=== PATIENT | female | born 1935 | race Caucasian/White ===

== ENCOUNTER 2020-04-30 12:26 | Observation (INO) | payer MEDICARE, OTHER ==
[~2020-04-30] VITALS: Ht 165.1 cm; Wt 70.3 kg
[~2020-04-30 12:26] MED LIST: ARICEPT10 MG PO; BUSPIRONE HCL15 MG PO; CARAFATE 1 GM TA1 GM PO; CYANOCOBAL1000 MCG/1 INJ; CYMBALTA 30 MG30 MG PO; DETROL LA4 MG PO; DEXILANT60 MG PO; ELIQUIS2.5 MG PO; FENOFIBRATE160 MG PO; FEOSOL325 MG PO; FLONASE 0.05% N16 GM; HYDRALAZINE HC100 MG PO; HYDROCHLOROTHIA25 MG PO; IMDUR ER TAB 6060 MG PO; LASIX20 MG PO; LIPITOR40 MG PO; LOPRESSOR 25 MG25 MG PO; NEURONTIN 300300 MG PO; NORCO 7.5-3251 EACH PO; PEPCID40 MG PO; PERCOCET 5-3251 EACH PO; POTASSIUM CHLO20 ME1 PO; PRINIVIL10 MG PO; SEROQUEL50 MG PO; SYNTHROID137 MCG PO; TOUJEO MAX300 UNIT/1 SQ; TRADJENTA5 MG PO; VISTARIL25 MG PO; VITAMIN D31000 UNI1 PO; VITAMIN E400 UNI2 PO; ZESTRIL10 MG PO; ZOFRAN ODT 4 MG4 MG PO; ZOFRAN4 MG PO; ZOLOFT25 MG PO
[2020-04-30 15:53] LABS: HEMOGLOBIN 8.7 gm/dl (12.3-15.3); RED BLOOD COUNT 2.77 M/UL (4.00-5.10); WHITE BLOOD COUNT 9.2 K/UL (4.5-11.0)
[2020-04-30] MEDS ORDERED: NORVASC10 MG PO (16:01)
[2020-04-30] MEDS ORDERED: DAILY VITE1 EACH PO (16:13)
[2020-04-30] MEDS ORDERED: FERREX 150150 MG PO (16:13)
[2020-04-30] MEDS ORDERED: PROTONIX 40 MG40 M1 PO (16:15)
[2020-04-30 16:54] LABS: BUN/CREATININE RATIO 26 (0-10)
[2020-05-01 05:07] LABS: HEMOGLOBIN 8.5 gm/dl (12.3-15.3); RED BLOOD COUNT 2.79 M/UL (4.00-5.10); WHITE BLOOD COUNT 8.2 K/UL (4.5-11.0)
[2020-05-02 04:51] LABS: HEMOGLOBIN 7.1 gm/dl (12.3-15.3); WHITE BLOOD COUNT 7.7 K/UL (4.5-11.0)
[2020-05-02 04:54] LABS: RED BLOOD COUNT 2.35 M/UL (4.00-5.10)
[2020-05-03 05:53] LABS: HEMOGLOBIN 8.8 gm/dl (12.3-15.3); RED BLOOD COUNT 2.76 M/UL (4.00-5.10); WHITE BLOOD COUNT 7.1 K/UL (4.5-11.0)
== END 2020-05-03 11:27 | disposition home or self-care (01) ==
LOC: ER1 12:26 → M/S 14:22 → CDU 14:22 → M/S 20:10
PROVIDERS: Orthopaedic Surgery; Physician Assistant; ADMIT Family Medicine
DX: T84.021A Dislocation of internal left hip prosthesis, initial encounter (principal); I13.0 Hypertensive heart and chronic kidney disease with heart failure and stage 1 through stage 4 chronic kidney disease, or unspecified chronic kidney disease; N18.9 Chronic kidney disease, unspecified; I50.9 Heart failure, unspecified; D63.1 Anemia in chronic kidney disease; D50.9 Iron deficiency anemia, unspecified; E87.6 Hypokalemia; I48.0 Paroxysmal atrial fibrillation; E11.9 Type 2 diabetes mellitus without complications; K21.9 Gastro-esophageal reflux disease without esophagitis; F32.9 Major depressive disorder, single episode, unspecified; F03.90 Unspecified dementia, unspecified severity, without behavioral disturbance, psychotic disturbance, mood disturbance, and anxiety; E03.9 Hypothyroidism, unspecified; Z98.890 Other specified postprocedural states; Z20.822 Contact with and (suspected) exposure to COVID-19; Z82.49 Family history of ischemic heart disease and other diseases of the circulatory system; Z88.5 Allergy status to narcotic agent; Z79.84 Long term (current) use of oral hypoglycemic drugs; Z79.01 Long term (current) use of anticoagulants; Z79.899 Other long term (current) drug therapy
CPT/HCPCS: 36415; 36430; 71045; 73502; 76000; 80048; 80053; 81001; 82550; 82553; 82962; 83874; 84132; 84484; 85025; 85027; 85610; 85730; 86850; 86900; 86901; 86920; 93005; 96372; 96374; 96375; 96376; 97110-GP-CQ; 97116-GP-CQ; 97161; 99284; G0378; J2001; J2405; J2704; J3420; J3480; J7030; J7120; P9016; Q0177; U0002

== ENCOUNTER 2021-07-08 21:08 | Inpatient (IN) | payer MEDICARE, OTHER ==
[~2021-07-08] VITALS: Ht 162.6 cm; Wt 51.9 kg
[~2021-07-08 21:08] MED LIST changes: +DAILY VITE1 EACH PO; +FERREX 150150 MG PO; +NORVASC10 MG PO; +PROTONIX 40 MG40 M1 PO
[2021-07-09 00:04] LABS: HEMOGLOBIN 9.3 gm/dl (12.3-15.3); RED BLOOD COUNT 2.9 M/UL (4.00-5.10); WHITE BLOOD COUNT 16.4 K/UL (4.5-11.0)
[2021-07-09] MEDS ORDERED: ASCORBIC ACID500 MG PO (00:47)
[2021-07-09] MEDS ORDERED: COREG3.125 MG PO (00:50)
[2021-07-09] MEDS ORDERED: COREG6.25 MG PO ×2 (00:51→00:52)
[2021-07-09] MEDS ORDERED: CREON DR 24,001 EACH PO (00:58)
[2021-07-09] MEDS ORDERED: ELDERTONIC LIQ473 ML PO (00:59)
[2021-07-09] MEDS ORDERED: VITAMIN D21250 MCG PO (01:04)
[2021-07-09] MEDS ORDERED: FENOFIBRATE160 MG PO (01:06)
[2021-07-09] MEDS ORDERED: HYDROCORTISON MC (01:09)
[2021-07-09] MEDS ORDERED: LASIX40 MG PO (01:11)
[2021-07-09] MEDS ORDERED: LEVOTHYROXINE137 MC1 PO (01:12)
[2021-07-09] MEDS ORDERED: LEVOTHYROXINE150 MC1 PO (01:13)
[2021-07-09] MEDS ORDERED: LISINOPRIL2.5 MG PO (01:15)
[2021-07-09] MEDS ORDERED: METAMUCIL PACK3.4 GM PO (01:16)
[2021-07-09] MEDS ORDERED: MIRTAZAPINE7.5 MG PO (01:17)
[2021-07-09] MEDS ORDERED: NAMENDA5 MG PO (01:18)
[2021-07-09 01:19] LABS: BORDETELLA PARAPERTUSSIS Not Detected (Not Detectd); BORDETELLA PERTUSSIS Not Detected (Not Detectd); CHLAMYDIA PNEUMONIAE Not Detected (Not Detectd); CORONAVIRUS HKU1 Not Detected (Not Detectd); CORONAVIRUS NL63 Not Detected (Not Detectd); CORONAVIRUS OC43 Not Detected (Not Detectd); CORONOAVIRUS 229E Not Detected (Not Detectd); HUMAN METAPNEUMOVIRUS Not Detected (Not Detectd); HUMAN RHINOVIRUS/ENTEROVIRUS Not Detected (Not Detectd); INFLUENZA A Not Detected (Not Detectd); INFLUENZA B Not Detected (Not Detectd); MYCOPLASMA PNEUMONIAE Not Detected (Not Detectd); PARAINFLUENZA VIRUS 1 Not Detected (Not Detectd); PARAINFLUENZA VIRUS 2 Not Detected (Not Detectd); PARAINFLUENZA VIRUS 3 Not Detected (Not Detectd); PARAINFLUENZA VIRUS 4 Not Detected (Not Detectd); RESPIRATORY SYNCYTIAL VIRUS Not Detected (Not Detectd)
[2021-07-09] MEDS ORDERED: PEPCID20 MG PO (01:19)
[2021-07-09] MEDS ORDERED: POLYSACCHARIDE150 M1 PO (01:20)
[2021-07-09] MEDS ORDERED: K-TAB ER10 MEQ PO (01:21)
[2021-07-09] MEDS ORDERED: PROMOD 946 ML BT1 EA PO (01:22)
[2021-07-09] MEDS ORDERED: REMERON 15 MG T15 MG PO (01:25)
[2021-07-09 02:13] LABS: SARS-CoV-2 NOT DETECTED (Not Detectd)
[2021-07-09 08:43] LABS: HEMOGLOBIN 8.2 gm/dl (12.3-15.3); WHITE BLOOD COUNT 14.4 K/UL (4.5-11.0)
[2021-07-09 08:45] LABS: RED BLOOD COUNT 2.57 M/UL (4.00-5.10)
[2021-07-09 16:12] LABS: ADENOVIRUS F 40/41 Not Detected (Negative); ASTROVIRUS Not Detected (Negative); CAMPYLOBACTER Not Detected (Negative); CRYPTOSPORIDIUM Not Detected (Negative); E.COLI 0157 Not Detected (Negative); ENTAMOEBA HISTOLYTICA Not Detected (Negative); ENTEROAGGREGATIVE E.COLI (EAEC Not Detected (Negative); ENTEROPATHOGENIC E.COLI (EPEC) Not Detected (Negative); ENTEROTOXIGENIC E.COLI (ETEC) Not Detected (Negative); GIARDIA LAMBLIA Not Detected (Negative); NOROVIRUS GI/GII Not Detected (Negative); PLESIOMONAS SHIGELLOIDES Not Detected (Negative); ROTOVIRUS A Not Detected (Negative); SALMONELLA Not Detected (Negative); SAPOVIRUS Not Detected (Negative); SHIG/ENTEROINVAS.ECOLI (EIEC) Not Detected (Negative); SHIGA-LIK TOX.PRO.E.COLI (STEC Not Detected (Negative); VIBRIO Not Detected (Negative); VIBRIO CHOLERAE Not Detected (Negative); YERSINIA ENTEROCOLITICA Not Detected (Negative)
[2021-07-10 03:29] LABS: HEMOGLOBIN 8.2 gm/dl (12.3-15.3); RED BLOOD COUNT 2.6 M/UL (4.00-5.10); WHITE BLOOD COUNT 13.9 K/UL (4.5-11.0)
[2021-07-11 01:33] LABS: WHITE BLOOD COUNT 13.8 K/UL (4.5-11.0)
[2021-07-11 01:35] LABS: RED BLOOD COUNT 2.26 M/UL (4.00-5.10)
[2021-07-11 16:27] LABS: WHITE BLOOD COUNT 13.3 K/UL (4.5-11.0)
[2021-07-11 16:28] LABS: HEMOGLOBIN 10.5 gm/dl (12.3-15.3); RED BLOOD COUNT 3.38 M/UL (4.00-5.10)
[2021-07-12 06:27] LABS: HEMOGLOBIN 11.9 gm/dl (12.3-15.3); WHITE BLOOD COUNT 11.9 K/UL (4.5-11.0)
[2021-07-12 06:32] LABS: RED BLOOD COUNT 3.83 M/UL (4.00-5.10)
[2021-07-13 09:47] LABS: HEMOGLOBIN 10.1 gm/dl (12.3-15.3); WHITE BLOOD COUNT 9.2 K/UL (4.5-11.0)
[2021-07-13 09:48] LABS: RED BLOOD COUNT 3.29 M/UL (4.00-5.10)
[2021-07-14 01:59] LABS: HEMOGLOBIN 10.5 gm/dl (12.3-15.3); RED BLOOD COUNT 3.36 M/UL (4.00-5.10); WHITE BLOOD COUNT 7.8 K/UL (4.5-11.0)
[2021-07-15 03:12] LABS: HEMOGLOBIN 10.2 gm/dl (12.3-15.3); RED BLOOD COUNT 3.29 M/UL (4.00-5.10); WHITE BLOOD COUNT 8.9 K/UL (4.5-11.0)
[2021-07-16 04:51] LABS: HEMOGLOBIN 10.7 gm/dl (12.3-15.3); RED BLOOD COUNT 3.45 M/UL (4.00-5.10); WHITE BLOOD COUNT 7.1 K/UL (4.5-11.0)
[2021-07-17 03:41] LABS: HEMOGLOBIN 9.4 gm/dl (12.3-15.3); WHITE BLOOD COUNT 8.2 K/UL (4.5-11.0)
[2021-07-17 03:42] LABS: RED BLOOD COUNT 3.04 M/UL (4.00-5.10)
[2021-07-18 02:35] LABS: HEMOGLOBIN 10.3 gm/dl (12.3-15.3); RED BLOOD COUNT 3.26 M/UL (4.00-5.10); WHITE BLOOD COUNT 10.2 K/UL (4.5-11.0)
[2021-07-18 09:51] LABS: ADENOVIRUS F 40/41 Not Detected (Negative); ASTROVIRUS Not Detected (Negative); CAMPYLOBACTER Not Detected (Negative); CRYPTOSPORIDIUM Not Detected (Negative); E.COLI 0157 Not Detected (Negative); ENTAMOEBA HISTOLYTICA Not Detected (Negative); ENTEROAGGREGATIVE E.COLI (EAEC Not Detected (Negative); ENTEROPATHOGENIC E.COLI (EPEC) Not Detected (Negative); ENTEROTOXIGENIC E.COLI (ETEC) Not Detected (Negative); GIARDIA LAMBLIA Not Detected (Negative); NOROVIRUS GI/GII Not Detected (Negative); PLESIOMONAS SHIGELLOIDES Not Detected (Negative); ROTOVIRUS A Not Detected (Negative); SALMONELLA Not Detected (Negative); SAPOVIRUS Not Detected (Negative); SHIG/ENTEROINVAS.ECOLI (EIEC) Not Detected (Negative); SHIGA-LIK TOX.PRO.E.COLI (STEC Not Detected (Negative); VIBRIO Not Detected (Negative); VIBRIO CHOLERAE Not Detected (Negative); YERSINIA ENTEROCOLITICA Not Detected (Negative)
[2021-07-18 11:15] LABS: CLOSTRIDIUM DIFFICILE TOX A/B Not Detected (Negative)
[2021-07-19 03:34] LABS: HEMOGLOBIN 8.3 gm/dl (12.3-15.3); RED BLOOD COUNT 2.65 M/UL (4.00-5.10); WHITE BLOOD COUNT 7.4 K/UL (4.5-11.0)
[2021-07-20 04:35] LABS: HEMOGLOBIN 7.8 gm/dl (12.3-15.3); RED BLOOD COUNT 2.5 M/UL (4.00-5.10); WHITE BLOOD COUNT 6.1 K/UL (4.5-11.0)
[2021-07-21 04:00] LABS: HEMOGLOBIN 7.7 gm/dl (12.3-15.3); RED BLOOD COUNT 2.45 M/UL (4.00-5.10); WHITE BLOOD COUNT 5.4 K/UL (4.5-11.0)
[2021-07-22 03:57] LABS: HEMOGLOBIN 8.3 gm/dl (12.3-15.3); RED BLOOD COUNT 2.65 M/UL (4.00-5.10); WHITE BLOOD COUNT 4.9 K/UL (4.5-11.0)
[2021-07-22] MEDS ORDERED: HYDROCODON-ACE1 EAC2 PO (11:50)
--- NOTE | 2021-07-22 14:19 | NUR ---
REPORT CALLED TO [facility]. ALL INFORMATION REGARDING CONTINUING OF CARE PROVIDED.
== END 2021-07-22 18:50 | DRG 871 ==
LOC: PROG CARE 21:08
PROVIDERS: Internal Medicine; Internal Medicine Nephrology; ADMIT Internal Medicine
PROC: 3E03329 Introduction of Other Anti-infective into Peripheral Vein, Percutaneous Approach (ICD-10-PCS; principal; 2021-07-08)
PROC: 3E033XZ Introduction of Vasopressor into Peripheral Vein, Percutaneous Approach (ICD-10-PCS; 2021-07-08)
PROC: 30233N1 Transfusion of Nonautologous Red Blood Cells into Peripheral Vein, Percutaneous Approach (ICD-10-PCS; 2021-07-11)
DX: A41.9 Sepsis, unspecified organism (principal); R65.21 Severe sepsis with septic shock; E43 Unspecified severe protein-calorie malnutrition; N17.0 Acute kidney failure with tubular necrosis; J18.9 Pneumonia, unspecified organism; I48.20 Chronic atrial fibrillation, unspecified; E87.2 Acidosis; I50.42 Chronic combined systolic (congestive) and diastolic (congestive) heart failure; I13.0 Hypertensive heart and chronic kidney disease with heart failure and stage 1 through stage 4 chronic kidney disease, or unspecified chronic kidney disease; A04.71 Enterocolitis due to Clostridium difficile, recurrent; Z68.1 Body mass index [BMI] 19.9 or less, adult; N30.00 Acute cystitis without hematuria; E87.0 Hyperosmolality and hypernatremia; H91.90 Unspecified hearing loss, unspecified ear; E87.5 Hyperkalemia; Z20.822 Contact with and (suspected) exposure to COVID-19; F03.90 Unspecified dementia, unspecified severity, without behavioral disturbance, psychotic disturbance, mood disturbance, and anxiety; F41.8 Other specified anxiety disorders; I65.29 Occlusion and stenosis of unspecified carotid artery; E03.9 Hypothyroidism, unspecified; D63.1 Anemia in chronic kidney disease; L89.152 Pressure ulcer of sacral region, stage 2; L89.322 Pressure ulcer of left buttock, stage 2; D69.6 Thrombocytopenia, unspecified; E87.6 Hypokalemia; N85.8 Other specified noninflammatory disorders of uterus; E78.5 Hyperlipidemia, unspecified; N18.30 Chronic kidney disease, stage 3 unspecified; Z66 Do not resuscitate; D25.9 Leiomyoma of uterus, unspecified; E11.22 Type 2 diabetes mellitus with diabetic chronic kidney disease; Z74.01 Bed confinement status; Z79.899 Other long term (current) drug therapy; Z90.49 Acquired absence of other specified parts of digestive tract; Z98.49 Cataract extraction status, unspecified eye; Z98.890 Other specified postprocedural states; Z88.5 Allergy status to narcotic agent; Z82.49 Family history of ischemic heart disease and other diseases of the circulatory system; E11.649 Type 2 diabetes mellitus with hypoglycemia without coma; Z79.4 Long term (current) use of insulin
CPT/HCPCS: 36415; 71045; 74230; 76856; 80048; 80053; 80202; 81001; 82436; 82550; 82553; 82570; 82607; 82746; 82803; 82962; 83540; 83550; 83605; 83735; 83880; 84100; 84132; 84133; 84156; 84300; 84439; 84443; 84484; 85007; 85025; 85027; 85610; 86140; 86850; 86900; 86901; 86920; 87040; 87077; 87086; 87186; 87449; 87507; 87633; 92526; 92610; 92611-GN; 94760; A6212; C9113; J1160; J1335; J1644; J1756; J2185; J2370; J3370; J3475; J3480; J7030; J7070; P9016; P9047; U0002